=== PATIENT | female | born 1980 | race Hispanic/Latino ===

== ENCOUNTER → 2019-11-06 | Outpatient (CLI) | payer BC | END | disposition home or self-care (01) | LOC: RAH 11:59 | PROVIDERS: ATTEND Physical Medicine & Rehabilitation | DX: M47.817 Spondylosis without myelopathy or radiculopathy, lumbosacral region (principal); M48.07 Spinal stenosis, lumbosacral region; M25.78 Osteophyte, vertebrae | CPT/HCPCS: 72110 ==

== ENCOUNTER → 2022-05-12 | Outpatient (CLI) | payer BC, OTHER | END | disposition home or self-care (01) | LOC: RAH 13:41 | PROVIDERS: ATTEND Physical Medicine & Rehabilitation | DX: M99.03 Segmental and somatic dysfunction of lumbar region (principal); M48.07 Spinal stenosis, lumbosacral region; M54.51 Vertebrogenic low back pain; M99.05 Segmental and somatic dysfunction of pelvic region | CPT/HCPCS: 72148 ==